=== PATIENT | female | born 1960 | race Caucasian/White ===

== ENCOUNTER 2016-07-08 01:12 | Inpatient (IN) | payer BC ==
[~2016-07-08] VITALS: Ht 167.6 cm; Wt 160.0 kg
[~2016-07-08 01:12] MED LIST: ASPI-664 PO; FER325 PO; HYD25 PO; LORA0.5T PO; NAPR-688 PO; OMEP20CA16 PO
--- NOTE | 2016-07-08 02:13 | ERA ---
ER Documentation Chief Complaint Date/Time DATE: 07/08/16 TIME: 02:13 Chief Complaint Left-sided numbness HPI The patient is a 56-year-old female, presenting to the ER because of left-sided numbness for the last 3 days. She complains of subjective fever, vague left- sided headache, denies sore throat, cough, neck pain, chest pain, dyspnea, abdominal pain, vomiting, dysuria, diarrhea. She does smoke, drinks socially, denies illicit drug Past medical history: Anxiety, chronic low back pain Past surgical history: Appendectomy, , tubal ligation ROS All systems reviewed and are negative except as per history of present illness. Medications Home Meds Active Scripts Naproxen* (Naproxen*) 500 Mg Tablet, 500 MG PO BID Y for PAIN, #30 TAB Prov:ASHELY PADRON MD 02/16/16 Lorazepam* (Lorazepam*) 0.5 Mg Tablet, 0.5 MG PO Q8 Y for ANXIETY, #15 TAB Prov:ASHELY PADRON MD 02/16/16 Reported Medications Ferrous Sulfate* (Ferrous Sulfate*) 325 Mg Tabec, 325 MG PO DAILY, TAB 02/08/15 Omeprazole* (Omeprazole*) 20 Mg Capsule.dr, 20 MG PO DAILY, CAP 02/08/15 Hydrochlorothiazide* (Hydrochlorothiazide*) 25 Mg Tab, 25 MG PO DAILY, TAB 02/08/15 Aspirin* (Aspirin* EC) 81 Mg Tablet.dr, 81 MG PO DAILY, TAB 02/08/15 Allergies Allergies: Coded Allergies: No Known Drug Allergy (Verified Allergy, Mild, 02/08/15) PMhx/Soc History of Surgery: Yes (APPENDECTOMY, , BTL) Anesthesia Reaction: No Hx Neurological Disorder: No Hx Respiratory Disorders: No Hx Cardiac Disorders: No (HTN) Hx Psychiatric Problems: No Hx Miscellaneous Medical Probl: No (THYROID ) Hx Alcohol Use: Yes (occasionally) Hx Substance Use: No Hx Tobacco Use: No Smoking Status: Never smoker Physical Exam Vitals Vital Signs Date Time Temp Pulse Resp B/P Pulse Ox O2 Delivery O2 Flow Rate FiO2 07/08/16 02:01 114 20 155/91 98 Room Air 07/08/16 01:30 100.3 126 18 156/80 94 Physical Exam Const: No acute distress. Head: Atraumatic. Eyes: Normal Conjunctiva. ENT: Normal External Ears, Nose and Mouth. Neck: Full range of motion. No meningismus. Resp: Clear to auscultation bilaterally. Cardio: Regular but tachycardic Abd: Soft, non distended, normal bowel sounds, non tender. Skin: No petechiae or rashes. Back: No midline or flank tenderness. Ext: No cyanosis, or edema. Neur: Awake and alert. Right upper and right lower extremity 5/5, left upper and left lower extremity of 4+ Psych: Normal Mood and Affect. Result Diagram: 07/08/1632907/08/16329 Results 24 hrs Laboratory Tests Test 07/08/16 03:30 Alanine Aminotransferase (ALT/SGPT) 64IU/L Albumin 4.3g/dl Albumin/Globulin Ratio 1.07 Alkaline Phosphatase 157IU/L Anion Gap 20 Aspartate Amino Transf (AST/SGOT) 78IU/L Basophils # 0.010^3/ul Basophils % 0.0% Blood Morphology Comment Blood Urea Nitrogen 15mg/dl Calcium Level 9.2mg/dl Carbon Dioxide Level 23mmol/L Chloride Level 104mmol/L Creatinine 0.60mg/dl Direct Bilirubin 0.00mg/dl Eosinophils # 0.010^3/ul Eosinophils % 0.1% Ethyl Alcohol Level < 10.0mg/dl Globulin 4.00g/dl Glucose Level 106mg/dl Hematocrit 40.1% Hemoglobin 13.4g/dl Indirect Bilirubin 0.3mg/dl Lactic Acid Level 2.0mmol/L Lymphocytes # 0.710^3/ul Lymphocytes % 6.2% Mean Corpuscular Hemoglobin 28.9pg Mean Corpuscular Hemoglobin Concent 33.4g/dl Mean Corpuscular Volume 86.5fl Mean Platelet Volume 12.0fl Monocytes # 0.610^3/ul Monocytes % 5.3% Neutrophils # 10.110^3/ul Neutrophils % 88.4% Nucleated Red Blood Cells # 0.010^3/ul Nucleated Red Blood Cells % 0.0/100WBC Platelet Count 28863^3/UL Potassium Level 4.9mmol/L Red Blood Count 4.6310^6/ul Red Cell Distribution Width 14.5% Sodium Level 142mmol/L Total Bilirubin 0.3mg/dl Total Protein 8.3g/dl Troponin I 0.031ng/ml Urine Bilirubin NEGATIVE Urine Clarity CLEAR Urine Color LT. YELLOW Urine Glucose NEGATIVE% Urine Hemoglobin 3+ Urine Ketones NEGATIVE Urine Leukocyte Esterase NEGATIVE Urine Microscopic RBC 25-50/HPF Urine Microscopic WBC 0-2/HPF Urine Nitrite NEGATIVE Urine Specific [place] <=1.005 Urine Squamous Epithelial Cells FEW Urine Total Protein NEGATIVE Urine Urobilinogen 0.2 E.U./dL Urine pH 6.5 White Blood Count 11.410^3/ul Current Medications Medications (Trade) Dose Ordered Sig/Vinh Route PRN Reason Start Time Stop Time Status Last Admin Dose Admin Acetaminophen (Tylenol Tab) 650 mg ONCE STAT PO 07/08/16 02:43 07/08/16 02:46 DC 07/08/16 03:11 Procedures/MDM EKG: Read by emergency physician Rate/Rhythm: Sinus tachycardia 101 beats per min QRS, ST, T-waves: No ST elevation, no T wave inversion, inferior Q waves, artifacts Impression: Abnormal EKG [place] [address] Radiology Main Line: [phone] DIAGNOSTIC IMAGING REPORT Patient: SOPHIE BROWN : 1960 Age: 56 Sex: F MR #: [id number] DOS: 07/08/16 0243 Ordering MD: FRANCES MENDENHALL MD Location: E/R Room/Bed: PROCEDURE: Chest. CLINICAL INDICATION: Chest pain. TECHNIQUE: Single frontal view of the chest was obtained. COMPARISON: 02/16/2016. FINDINGS: The cardiac silhouette is magnified. The aortic arch is unremarkable. There is no focal consolidation, vascular congestion or pleural effusion. There is no pneumothorax. IMPRESSION: No evidence for active cardiopulmonary disease. .Jericho Tai MD, MD Date Time Electronically viewed and signed by .Jericho Tai MD, on 07/08/2016 03:35 .T/ CC: FRANCES MENDENHALL MD [address] [address] Radiology Main Line: [phone] DIAGNOSTIC IMAGING REPORT Patient: SOPHIE BROWN : 1960 Age: 56 Sex: F MR #: [id number] [facility] #: [id number] DOS: 07/08/16 0243 Ordering MD: FRANCES MENDENHALL MD Location: E/R Room/Bed: PROCEDURE: CT brain without contrast. CLINICAL INDICATION: Weakness. TECHNIQUE: CT scan of the brain was performed on a multi-detector high- resolution CT scanner. Contiguous axial images were obtained from the skull base to the vertex without intravenous contrast. Coronal and sagittal reformatted images were also obtained. Images were reviewed on the PACS workstation. One or more of the following dose reduction techniques were used: - Automated exposure control. - Adjustment of the mA and/or kV according to patient size. - Use of iterative reconstruction technique. Exam CTD/vol = 45.01 mGy. Total exam DLP = 720.23 mGy-cm. COMPARISON: 03/31/2015. FINDINGS: The ventricles and cortical sulci are within normal limits for patient's age. There are no areas of abnormal attenuation within the brain parenchyma. There is no mass effect or midline shift. There is no intracranial hemorrhage or abnormal extra-axial collection. The calvarium is intact. There is no evidence of fracture. Visualized paranasal sinuses and mastoid air cells are clear. IMPRESSION: No acute intracranial abnormality identified. .Jericho Tai MD, MD Date Time Electronically viewed and signed by .Jericho Tai MD, on 07/08/2016 04:23 .T/ CC: FRANCES MENDENHALL MD MEDICAL MAKING DECISION: The patient is a 56-year-old female, presenting with subacute left-sided weakness of unclear etiology. The differential diagnoses considered include but are not limited to TIA, CVA, central causes such as cerebellar infarct, cerebellar hemorrhage, cerebellar tumor, acoustic neuroma, peripheral causes such as benign positional vertigo, labyrinthitis, medication, Meniere's disease. She was treated with Tylenol for her headache with good response Urinalysis pending Departure Diagnosis: Primary Impression: Left-sided weakness Condition: Stable Comments I discussed the findings with the patient. I discussed the patient with the on- call hospitalist Dr. Escobar who was made aware of the lab, the treatment, the patient condition. The patient is admitted to telemetry at 5 AM The patient's blood pressure was elevated (>120/80) but appears stable without evidence of hypertension emergency or urgency. The patient was counseled about the risks of hypertension and urged to pursue outpatient monitoring and therapy within a week after discharge with their primary care physician. FRANCES MENDENHALL MD Jul 08, 2016 02:13
[2016-07-08] MEDS ORDERED: ACETAMINOPHEN 325 MG TAB PO STA (02:43)
--- NOTE | 2016-07-08 03:35 | RADRPT ---
PROCEDURE: Chest. CLINICAL INDICATION: Chest pain. TECHNIQUE: Single frontal view of the chest was obtained. COMPARISON: 02/16/2016. FINDINGS: The cardiac silhouette is magnified. The aortic arch is unremarkable. There is no focal consolidat ion, vascular congestion or pleural effusion. There is no pneumothorax. IMPRESSION: No evidence for active cardiopulmonary disease. .Jericho Tai MD, Date Time Electronically viewed and signed by .Jericho Tai MD, on 07/08/2016 03:35 .T/
--- NOTE | 2016-07-08 04:23 | RADRPT ---
PROCEDURE: CT brain without contrast. CLINICAL INDICATION: Weakness. TECHNIQUE: CT scan of the brain was performed on a multi-detector high-resolution CT scanner. Co ntiguous axial images were obtained from the skull base to the vertex without intravenous contrast. Coronal and sagittal reformatted images were also obtained. Images were reviewed on the PACS works tation. One or more of the following dose reduction techniques were used: - Automated exposure control. - Adjustment of the mA and/or kV according to patient size. - Use of iterative reconstruction technique. Exam CTD/vol = 45.01 mGy. Total exam DLP = 720.23 mGy-cm. COMPARISON: 03/31/2015. FINDINGS: The ventricles and cortical sulci are within normal limits for patient's age. There are no areas of abnormal attenuation within the brain parenchyma. There is no mass effect or midline shift. There is no intracranial hemorrhage or abnormal extra-axial collection. The calvarium is intact. There is no evidence of fracture. Visualized paranasal sinuses and mastoid air cells are clear. IMPRESSION: No acute intracranial abnormality identified. .Jericho Tai MD, MD Date Time Electronically viewed and signed by .Jericho Tia MD, MD on 07/08/2016 04:23 .T/
[2016-07-08 04:30] LABS: ALBUMIN 4.3 g/dl (3.3-4.9); CHLORIDE 104 mmol/L (97-110); EOSINOPHILS % 0.1 % (0.0-7.0); HEMATOCRIT 40.1 % (37.0-47.0); HEMOGLOBIN 13.4 g/dl (12.0-16.0); LYMPHOCYTES # 0.7 10^3/ul (0.8-2.9); LYMPHOCYTES % 6.2 % (15.0-51.0); MEAN CORPUSCULAR HEMOGLOBIN 28.9 pg (29.0-33.0); MEAN CORPUSCULAR HGB CONC 33.4 g/dl (32.0-37.0); MEAN CORPUSCULAR VOLUME 86.5 fl (82.0-101.0); MONOCYTE # 0.6 10^3/ul (0.3-0.9); MONOCYTES % 5.3 % (0.0-11.0); NEUTROPHIL # 10.1 10^3/ul (1.6-7.5); NEUTROPHILS % 88.4 % (39.0-77.0); PLATELET COUNT 215 10^3/UL (140-440); POTASSIUM 4.9 mmol/L (3.5-5.1); RED BLOOD COUNT 4.63 10^6/ul (4.20-5.40); RED CELL DISTRIBUTION WIDTH 14.5 % (11.5-14.5); SODIUM 142 mmol/L (135-144); UNCORRECTED WBC 11.4 10^3/ul (4.8-10.8); WHITE BLOOD COUNT 11.4 10^3/ul (4.8-10.8)
[2016-07-08 04:33] LABS: ALANINE AMINOTRANSFERASE 64 IU/L (13-69); ALBUMIN/GLOBULIN RATIO 1.07; ALKALINE PHOSPHATASE 157 IU/L (42-121); ANION GAP 20 (8-16); ASPARTATE AMINO TRANSFERASE 78 IU/L (15-46); BILIRUBIN,INDIRECT 0.3 mg/dl (0-1.1); BILIRUBIN,TOTAL 0.3 mg/dl (0.2-1.3); BLOOD UREA NITROGEN 15 mg/dl (7-20); CALCIUM 9.2 mg/dl (8.4-10.2); CARBON DIOXIDE 23 mmol/L (21-31); GLUCOSE 106 mg/dl (70-220); TOTAL PROTEIN 8.3 g/dl (6.1-8.1)
[2016-07-08 04:35] LABS: CONDITION 1; LH ANALYZER COMMENTS 1; SUSPECT 1
[2016-07-08 04:37] LABS: ETHANOL < 10.0 mg/dl
[2016-07-08 04:45] LABS: ADD UMIC YES; URINE BILIRUBIN (Dip) NEGATIVE (NEGATIVE); URINE BLOOD (Dip) 3+ (NEGATIVE); URINE COLOR LT. YELLOW (YELLOW); URINE GLUCOSE (Dip) NEGATIVE (NEGATIVE); URINE KETONES (Dip) NEGATIVE (NEGATIVE); URINE LEUKOCYTE ESTERASE (Dip) NEGATIVE (NEGATIVE); URINE NITRITE (Dip) NEGATIVE (NEGATIVE); URINE TOTAL PROTEIN (Dip) NEGATIVE (NEGATIVE); URINE UROBILINOGEN (Dip) 0.2 E.U./dL (0.1-1.0)
[2016-07-08 04:46] LABS: TROPONIN-I 0.031 ng/ml (0.00-0.12)
[2016-07-08 05:01] LABS: SQUAMOUS EPITHELIAL CELL,UR FEW; URINE RBCS 25-50 /HPF (0)
[2016-07-08 05:07] LABS: BARBITURATES Negative (NEGATIVE); BENZODIAZEPINES Negative (NEGATIVE); CANNABINOIDS Negative (NEGATIVE); COCAINE Negative (NEGATIVE); OPIATES Negative (NEGATIVE)
[2016-07-08 08:01] LABS: PROTIME 13.2 Sec (12.2-14.2)
--- NOTE | 2016-07-08 08:28 | HP ---
DATE OF ADMISSION: 07/08/2016 CHIEF COMPLAINT: Left arm and leg numbness. HISTORY OF PRESENT ILLNESS: The patient is a 56-year-old female with a history of hypertension, anx iety, and iron deficiency anemia who presented to the emergency department with a chief complaint of left-sided numbness. She said numbness includes her left arm and left leg and also reported some f acial twitching. Symptoms have been going on for about 3 days. She further reported subjective fev er but denied any nausea, vomiting, chest pain, shortness of breath, abdominal pain, or urinary symp toms. When the patient presented to the ER, blood pressure was 156/80, heart rate 123, respiratory rate 18 , temperature 100.3, oxygen saturation 94% on room air. Brain CT was done, and it showed no acute i ntracranial abnormality. Chest x-ray also shows no evidence of active cardiopulmonary disease. Lab oratory data shows a WBC of 11.4, AST 78, alkaline phosphatase 157. Otherwise, CBC and CMP are with in normal limits. Urinalysis is negative for UTI. Urine toxicology screen is negative. She was gi rodo Tylenol 650 x1 while she was in the ER, and currently she is awaiting admission to telemetry [facility]. REVIEW OF SYSTEMS: A 12-point review was performed and negative except as mentioned in HPI. PAST MEDICAL HISTORY: As per HPI. PAST SURGICAL HISTORY: Appendectomy, , tubal ligation. SOCIAL HISTORY: Denied a history of tobacco, alcohol, or illicit drug use. ALLERGIES: NO KNOWN DRUG ALLERGIES. HOME MEDICATIONS: 1. Ferrous sulfate. 2. Aspirin. 3. Ativan. 4. Naproxen. 5. Hydrochlorothiazide. 6. . PHYSICAL EXAMINATION: VITAL SIGNS: Blood pressure 155/91, heart rate 114, respiratory rate 20, temperature earlier was 10 0.3, oxygen saturation 98% on room air. GENERAL: No acute distress. She is alert and oriented and answering questions appropriately. HEENT: No obvious head deformity. Pupils are reactive to light. Extraocular muscles intact. CARDIOVASCULAR: Tachycardic with regular rhythm. LUNGS: Clear. ABDOMEN: Soft, nontender, nondistended. Active bowel sounds. EXTREMITIES: No edema. NEUROLOGIC: No focal weakness. There is slight decreased sensation on the left upper extremity. N o double vision. No facial droop. No tongue deviation. LABORATORY: Pertinent positives as mentioned in HPI. IMAGING: Chest x-ray and brain CT results show no acute findings. IMPRESSION: 1. Left-sided numbness, rule out stroke. 2. Systemic inflammatory response syndrome with no identifiable source of infection. 3. Hypertension. 4. History of anxiety. 5. History of iron deficiency anemia. PLAN: We will admit to telemetry unit. The patient has not been given aspirin in the ER, so we anais l give a dose now, and we will continue on a daily basis. She needs workup for stroke. She will be placed on statin. We will obtain MRI of the brain, carotid Doppler ultrasound, and a 2D echo. The patient also meets the SIRS criteria and currently no identifiable source of infection with a negat arelis chest x-ray and a urinalysis. If she continues to be febrile and complains of any neck stiffnes s or headache, then we will work up for possible meningitis. In the meantime, we will send the bloo d culture and urine culture, and she will be placed on antibiotics. We will continue her home medic ations with adjustment as needed including her antihypertensives for better blood pressure control. For DVT prophylaxis, Levaquin. For gastrointestinal prophylaxis, she will be continued with her [facility] Prilosec. We will consider neurology consult based on clinical course. Further workup and management per clinical course. Dictated By: ODIN STEWARD/TERESITA Conf#: [id number] DID#: [id number]
[2016-07-08] MEDS ORDERED: hydrALAzine 20 MG INJ IV PRN (12:30)
[2016-07-08] MEDS ORDERED: NACL 0.9% 3 ML SYG IV SCH (12:30)
[2016-07-08] MEDS ORDERED: ONDANSETRON 4 MG INJ IV PRN (12:30)
--- NOTE | 2016-07-08 14:38 | QN ---
Documentation Comment The patient was seen and examined. Ordered carotid duplex, 2D echocardiogram, and brain MRI. The patient was started on IV fluids. Pancultures were ordered to further evaluate the febrile episode. Plan of care was explained to the patient. Case discussed with Dr. Molina. JT SALTER NP Jul 08, 2016 14:38
[2016-07-08] MEDS: SOD CHLORIDE 0.9% 1,000 ML IV SCH ×2 (15:09→21:44)
--- NOTE | 2016-07-08 15:45 | RADRPT ---
PROCEDURE: US Carotids. CLINICAL INDICATION: bruit , TIA TECHNIQUE: Multiple sonographic of the carotid bifurcation region and vertebral arteries were obta ined utilizing phan scale, duplex and color-flow imaging. The images were reviewed on a PACS worksta tion. COMPARISON: No prior studies are available for comparison. FINDINGS: Evaluation of the right carotid bifurcation region reveals no significant calcific atherosclerotic d isease. Evaluation of the left carotid bifurcation region reveals no significant calcific atherosclerotic di sease. There is antegrade flow within the vertebral arteries bilaterally. RIGHT CAROTID MEASUREMENTS: Common Carotid Gbhooj640.3 (cm/sec) Internal Carotid Artery - sgmoxyeg235.5 (cm/sec) Internal Carotid Artery - mid57.2 (cm/sec) Internal Carotid Artery - hywvku27.9 (cm/sec) Internal Carotid/Common Carotid1.26 LEFT CAROTID MEASUREMENTS: Common Carotid Icafif81.6 (cm/sec) Internal Carotid Artery - egekvbof85.6 (cm/sec) Internal Carotid Artery - mid56.7 (cm/sec) Internal Carotid Artery - cdolyb78.4 (cm/sec) Internal Carotid/Common Carotid0.64 RPTAT: AA IMPRESSION: No evidence for hemodynamically significant stenosis in the bilateral internal carotid arteries - va lidated velocity measurements with angiographic measurements, velocity criteria are extrapolated fro m diameter data as defined by the Society of Radiologists in Ultrasound Consensus Conference Radiolo gy 2003; 229;340-346. This study does indirectly reference the measurement of the distal ICA diamet er as the denominator for stenosis measurement. Normal antegrade flow in the vertebral arteries bilaterally. .Mic Watts MD, MD Date Time Electronically viewed and signed by .Mic Watts MD, on 07/08/2016 15:45 .S/
--- NOTE | 2016-07-08 16:26 | RADRPT ---
PROCEDURE: MRI Brain without contrast. CLINICAL INDICATION: Weakness TECHNIQUE: Multiplanar MRI of the brain without contrast was performed on a 3.0 T scanner with the following sequences obtained: T1-weighted, T2-weighted/FLAIR, diffusion weighted (with ADC map), GR E. COMPARISON: CT brain 07/08/2016 FINDINGS: No acute/recent ischemic infarction or intracranial hemorrhage / blood degradation products are iden tified. No extra-axial fluid collection is seen. There is no mass effect. No midline shift is identified. The ventricles and sulci are within normal limits for size and configuration. There are minimal scattered areas of increased T2-weighted FLAIR signal intensity in the periventric ular - deep white matter which are nonspecific but likely reflect chronic small vessel ischemic gates ges. Flow voids are identified in the proximal intracranial arteries and dural sinuses suggesting patency . The mastoid air cells and paranasal sinuses are grossly clear. IMPRESSION: 1. No evidence of acute intracranial pathology. 2. Minimal chronic small vessel ischemic changes. RPTAT: VV .Freddie Welsh MD, MD Date Time Electronically viewed and signed by .Freddie Welsh MD, on 07/08/2016 16:26 .O/
[2016-07-08] MEDS ORDERED: ACETAMINOPHEN 325 MG TAB PO ONE (17:00)
--- NOTE | 2016-07-08 17:16 | RADRPT ---
Echocardiogram Report Patient Name: SOPHIE BROWN Gender: Female Date: 1960 Study Date: 08-Jul-2016 [place] Roofer: Mili Almendarez SHAHEEN Location: [facility] Ref. Physician: JT SALTER Quality: Adequate Procedures: Transthoracic echocardiogram with complete 2D, M-Mode, and doppler examination. Indications: Evaluate Left Ventricular function. 2D/M Mode Doppler Measurement Value Normal Ranges Measurement Value Normal Ranges LVIDd 2D 5.0 3.5 - 5.6 cm AV Peak Tylor 1.8 m/sec LVIDs 2D 2.5 2.1 - 4.1 cm AV Peak PG 13.0 mmHg FS 2D 49.8 % LVOT Peak Tylor 1.3 m/sec LVPWd 2D 0.9 0.6 - 1.1 cm LVOT Peak PG 7.0 mmHg IVSd 2D 0.9 0.6 - 1.1 cm MV E Peak Tylor 0.6 m/sec IVS/LVPW 2D 1.0 MV A Peak Tylor 0.7 m/sec AoR Diam 2D 3.3 2.0 - 3.7 cm MV E/A 0.8 LA/Ao 2D 1 0 - 1 MV Decel Time 169 msec EDV 2D 127.0 cm3 MV E/A 0.8 ESV 2D 16.0 cm3 TR Peak Tylor 1.9 m/sec LA Dimen 2D 2.8 2.3 - 4.0 cm TR Peak PG 15.0 mmHg RVSP 18.0 mmHg Findings Left Ventricle: Normal left ventricular systolic function. Normal left ventricular cavity size. Normal left ventricular wall thickness. Ejection fraction is visually estimated at 55 %. Tissue Doppler/Mitral Doppler indices are consistent with impaired relaxation (Stage I diastolic dysfunction). Right Ventricle: Normal right ventricular size. Normal right ventricular systolic function. Left Atrium: The left atrium is normal in size. Right Atrium: The right atrium is normal in size. Mitral Valve: Normal appearance and function of the mitral valve with trace physiologic regurgitation. Aortic Valve: Normal appearance of the aortic valve. No significant aortic stenosis or insufficiency. Tricuspid Valve: Normal appearance of the tricuspid valve. Estimated peak PA systolic pressure 18 mmHg. There is trace tricuspid regurgitation. Pericardium: Normal pericardium with no significant pericardial effusion. Aorta: Normal aortic root. IVC: Normal size and normal respiratory collapse consistent with normal right atrial pressure. Conclusions 1.Normal left ventricular systolic function. Normal left ventricular cavity size. Normal left ventricular wall thickness. Ejection fraction is visually estimated at 55 %. Tissue Doppler/Mitral Doppler indices are consistent with impaired relaxation (Stage I diastolic dysfunction). 2.Normal appearance and function of the mitral valve with trace physiologic regurgitation. 3.Normal appearance of the tricuspid valve. Estimated peak PA systolic pressure 18 mmHg. There is trace tricuspid regurgitation. Electronically Signed By: Shar Pritchard 08-Jul-2016 17:16:00 -0800 Patient Name: SOPHIE BROWN Study Date: 08-Jul-2016 [id number]
[2016-07-08 19:45] VITALS: TEMP 99.3
[2016-07-08 20:00] VITALS: BP 115/78; PULSE 78; RESP 16
[2016-07-08 20:50] VITALS: PULSE 88
[2016-07-08 21:00] VITALS: Ht 167.6 cm; Wt 160.0 kg
[2016-07-09] VITALS (11 sets, daily range): BP systolic 102–123; BP diastolic 55–78; PULSE 71–97; RESP 16–18
[2016-07-09] MEDS ORDERED: LEVOFLOXACIN 500MG/D5W (PMX) 100 ML IVPB SCH (01:30)
[2016-07-09] MEDS ORDERED: ACETAMINOPHEN 325 MG TAB PO PRN (01:30)
[2016-07-09 07:35] LABS: CHOL/HDL RATIO 2.1 RATIO; MAGNESIUM 1.9 mg/dl (1.7-2.5); PHOSPHORUS 3.1 mg/dl (2.5-4.9)
[2016-07-09 07:37] LABS: ALBUMIN 3.1 g/dl (3.3-4.9)
[2016-07-09 07:38] LABS: POTASSIUM 3.1 mmol/L (3.5-5.1)
[2016-07-09 07:40] LABS: ALBUMIN/GLOBULIN RATIO 0.96; BILIRUBIN,INDIRECT 0.2 mg/dl (0-1.1); BILIRUBIN,TOTAL 0.2 mg/dl (0.2-1.3); CREATININE 0.54 mg/dl (0.44-1.00); TOTAL PROTEIN 6.3 g/dl (6.1-8.1)
[2016-07-09 07:41] LABS: CALCIUM 8.4 mg/dl (8.4-10.2)
[2016-07-09 08:06] LABS: THYROID STIMULATING HORMONE 0.706 MIU/L (0.465-4.680)
[2016-07-09] MEDS ORDERED: FERROUS SULFATE (EC) 325 MG TAB PO SCH (09:00)
[2016-07-09] MEDS ORDERED: HYDROCHLOROTHIAZIDE 25 MG TAB PO SCH (09:00)
[2016-07-09] MEDS ORDERED: ASPIRIN (EC) 81 MG TAB PO SCH (09:00)
[2016-07-09 09:01] LABS: HEMATOCRIT 34.3 % (37.0-47.0); HEMOGLOBIN 11.4 g/dl (12.0-16.0); MEAN CORPUSCULAR VOLUME 86.6 fl (82.0-101.0); RED BLOOD COUNT 3.96 10^6/ul (4.20-5.40)
[2016-07-09 09:02] LABS: BASOPHILS % 0.2 % (0.0-2.0); LYMPHOCYTES # 1.5 10^3/ul (0.8-2.9); MEAN CORPUSCULAR HEMOGLOBIN 28.8 pg (29.0-33.0); MEAN CORPUSCULAR HGB CONC 33.2 g/dl (32.0-37.0); MEAN PLATELET VOLUME 12.6 fl (7.4-10.4); MONOCYTE # 0.6 10^3/ul (0.3-0.9); MONOCYTES % 5.5 % (0.0-11.0); NEUTROPHIL # 7.9 10^3/ul (1.6-7.5); NEUTROPHILS % 78.9 % (39.0-77.0); PLATELET COUNT 195 10^3/UL (140-440); RED CELL DISTRIBUTION WIDTH 14.2 % (11.5-14.5)
[2016-07-09] MEDS ORDERED: HYD25 PO (13:52)
[2016-07-09] MEDS ORDERED: FER325 PO (13:52)
[2016-07-09] MEDS ORDERED: ASPI-664 PO (13:52)
[2016-07-09] MEDS ORDERED: OMEP20CA16 PO (13:52)
--- NOTE | 2016-07-09 13:55 | PDOCDIS ---
Discharge Instructions DIAGNOSIS Discharge Diagnosis: 1. Suspect migraine hemiplegia 2. UTI 3. hypertension 4. Anxiety 5. anemia CONDITION Patient Condition: Stable HOME CARE INSTRUCTIONS: Diet Instructions: Low Fat /CholesterolSpecial Diet: reduced calorie FOLLOW UP/APPOINTMENTS Appointments 1. Follow up with your primary care provider in one week. OTHER ORDERS: Other Orders: 1. Call 911 if you have worsening extremity weakness, slurred speech, or facial droop SEDRICK ADEN Jul 09, 2016 13:55
[2016-07-09] MEDS ORDERED: POTASSIUM CHLORIDE 250 ML IVPB ONE (14:00)
[2016-07-09] MEDS: SOD CHLORIDE 0.9% 1,000 ML IV SCH (17:40)
--- NOTE | 2016-07-09 18:19 | CONS ---
DATE OF ADMISSION: 07/08/2016 DATE OF CONSULTATION: 07/09/2016 REASON FOR CONSULTATION: Abnormal electrocardiogram with uncontrolled hypertension. HISTORY OF PRESENT ILLNESS: The patient is a 56-year-old female who initially came with left-sided weakness, it was a sudden weakness. She complains of shortness of breath with dizziness. Denies an y chest pain, syncope, palpitations. Denies orthopnea, PND, denies fever, chills or rigors. Denies nausea or vomiting. PAST MEDICAL HISTORY: Significant for hypertension, anxiety, iron deficiency anemia. SOCIAL HISTORY: No smoking, alcohol, or recreational drugs. ALLERGIES: NONE. CURRENT MEDICATIONS: 1. Ferrous sulfate. 2. Aspirin. 3. Hydrochlorothiazide. REVIEW OF SYSTEMS: Unremarkable except that mentioned in the HPI. PHYSICAL EXAMINATION: VITAL SIGNS: Temperature is 97.9, heart rate of 79, blood pressure 123/66 mmHg, breathing at 18 and saturating 95%. GENERAL: Patient is awake, alert, oriented, in no apparent distress. NECK: No JVD or carotid bruit. CARDIOVASCULAR: Regular rate and rhythm, no murmur, rub or gallop. LUNGS: Clear to auscultation. ABDOMEN: Soft. Bowel sounds are present. There is no organomegaly. EXTREMITIES: No pedal edema. Pedal pulses are felt bilaterally. EKG shows sinus tachycardia with a ventricular rate of 101 beats per minute, normal WI, normal QRS a nd normal QT intervals with nonspecific ST-T wave changes. LABORATORY DATA: Troponin x1 is negative. Sodium 142, potassium 3.1, chloride 108, CO2 of 23, BUN 8, creatinine 0.54. WBC 10, hemoglobin 11.4, hematocrit 34.2 with a platelet of 195. ASSESSMENT AND PLAN: A 56-year-old female with abnormal electrocardiogram, dizziness and hypertensi on with sudden weakness. Review of 12-lead EKG shows sinus tachycardia with nonspecific ST-T wave changes. Chest x-ray shows no congestion or infiltrates. The patient is currently hemodynamically stable. RECOMMENDATIONS: 1. Continue hydrochlorothiazide. 2. Continue aspirin. 3. Recommend a stress test as outpatient. Dictated By: SONU ROSEN MD SR/NTS Conf#: [id number] DID#: [id number]
== END 2016-07-09 19:28 | disposition home or self-care (01) | DRG 92 ==
LOC: E/R 01:12 → MS4 05:02
PROVIDERS: ADMIT Internal Medicine; ATTEND Internal Medicine
DX: R20.0 Anesthesia of skin (principal); R65.10 Systemic inflammatory response syndrome (SIRS) of non-infectious origin without acute organ dysfunction; I10 Essential (primary) hypertension; F41.9 Anxiety disorder, unspecified; D64.9 Anemia, unspecified; R06.02 Shortness of breath; R42 Dizziness and giddiness
CPT/HCPCS: 36415; 70450; 70551; 71010; 80053; 80061; 80306; 80307; 81001; 81003; 83036; 83605; 83735; 84100; 84439; 84443; 84484; 85025; 85610; 85730; 87040; 87086; 92610; 93005; 93306; 93880; J1956; J3480; J7030

== ENCOUNTER 2016-11-20 12:19 | Emergency (ER) | payer BC ==
[~2016-11-20] VITALS: Ht 165.1 cm; Wt 73.5 kg
[~2016-11-20 12:19] MED LIST changes: -LORA0.5T PO; -NAPR-688 PO
[2016-11-20 12:21] VITALS: Ht 165.1 cm; Wt 73.5 kg
[2016-11-20] MEDS ORDERED: ONDANSETRON (ODT) 4 MG TAB ODT STA (13:07)
--- NOTE | 2016-11-20 13:15 | ERA ---
ER Documentation Chief Complaint Date/Time DATE: 11/20/16 TIME: 13:14 Chief Complaint Complains of vomiting x 3 days HPI This is a 56-year-old female presenting with a chief complaint of nausea, vomiting, and diarrhea. Patient is also complaining of mild dizziness, left arm tingling, and headache. Patient has a history of hypertension. Denies thunderclap/worse headache of life, fever, chest pain, or shortness of breath. Patient has had similar symptoms in the past, but patient is unaware any given diagnoses. Patient has not taken any medications to relieve the symptoms. ROS All systems reviewed and are negative except as per history of present illness. Medications Home Meds Active Scripts Ondansetron Hcl* (Zofran*) 4 Mg Tablet, 4 MG PO Q6H for NAUSEA AND/OR VOMITING, #30 TAB Prov:FRANCES PEÑA PA-C 11/20/16 Ferrous Sulfate* (Ferrous Sulfate*) 325 Mg Tabec, 325 MG PO DAILY for 30 Days, TAB Prov:REGJOHNRSEDRICK 07/09/16 Omeprazole* (Omeprazole*) 20 Mg Capsule.dr, 20 MG PO DAILY for 30 Days, CAP Prov:REGIDOR,SEDRICK 07/09/16 Hydrochlorothiazide* (Hydrochlorothiazide*) 25 Mg Tab, 25 MG PO DAILY for 30 Days, TAB Prov:REGIDORSEDRICK 07/09/16 Aspirin* (Aspirin* EC) 81 Mg Tablet.dr, 81 MG PO DAILY for 30 Days, TAB Prov:REGIDOR,SEDRICK 07/09/16 Allergies Allergies: Coded Allergies: No Known Drug Allergy (Verified Allergy, Mild, 07/08/16) PMhx/Soc History of Surgery: Yes (APPENDECTOMY) Anesthesia Reaction: No Hx Neurological Disorder: No Hx Respiratory Disorders: No Hx Cardiac Disorders: Yes (HTN) Hx Psychiatric Problems: No Hx Miscellaneous Medical Probl: No Hx Alcohol Use: No Hx Substance Use: No Hx Tobacco Use: No Physical Exam Vitals Physical Exam Const: Healthy-appearing. Well-nourished. Well-developed. No acute distress. Head: Normocephalic, Atraumatic. No sinus tenderness. Eyes: Non-injected; No scleral erythema, discharge or foreign body. EOMI and CINDY bilaterally. Ears: Normal External Ears, EACs clear, TM normal bilaterally without erythema. Nose: Normal nose without discharge, septal deviation, or sinus tenderness. Oral: No oral edema visualized. Mucous membranes moist and pink. Neck: No cervical lymphadenopathy, masses or goiter palpated. Full range of motion. Supple. Trachea midline. ~ No meningismus. Pulm: Good air movement in upper and lower respiratory tracts. No dyspnea, stridor, tripoding or drooling. Clear to auscultation bilaterally. Percussion unremarkable in all lung grullon bilaterally. Cardio: Regular rate and rhythm; No murmurs, gallops or rubs auscultated. No JVD grossly observed. Radial and posterior tibial pulses 2+ bilaterally. No cyanosis. Capillary refill less than 2 seconds. Abd: Mild tenderness with deep palpation in the epigastric and mid abdominal regions. Soft. No distention. No guarding, masses. Normal bowel sounds. No McBurney's point tenderness. Negative Keita's sign. Unable to palpate the spleen or aorta. MS: Normal motor strength, normal tone with gross examination. Skin: No petechiae or rashes. No ulcer, induration, jaundice. Good turgor. Back: No midline, flank or CVA tenderness. Ext: No cyanosis, or edema. Normal movement of all extremities grossly observed. Neur: Awake, alert and oriented x3. Neurovascularly intact bilaterally. Psych: Active and alert. Normal Mood and Affect. Oriented x3. Results 24 hrs Laboratory Tests Test 11/20/16 13:15 11/20/16 13:21 Urine Color LT. YELLOW Urine Clarity CLEAR Urine pH 7.0 Urine Specific Adair <=1.005 Urine Ketones NEGATIVE Urine Nitrite NEGATIVE Urine Bilirubin NEGATIVE Urine Urobilinogen 0.2 E.U./dL Urine Leukocyte Esterase NEGATIVE Urine Microscopic RBC 2-5/HPF Urine Microscopic WBC NONE SEEN/HPF Urine Epithelial Cells RARE Urine Hemoglobin 2+ Urine Glucose NEGATIVE% Urine Total Protein NEGATIVE White Blood Count 16.410^3/ul Red Blood Count 4.8410^6/ul Hemoglobin 14.1g/dl Hematocrit 43.1% Mean Corpuscular Volume 89.0fl Mean Corpuscular Hemoglobin 29.1pg Mean Corpuscular Hemoglobin Concent 32.7g/dl Red Cell Distribution Width 14.6% Platelet Count 12746^3/UL Mean Platelet Volume 11.5fl Neutrophils % 84.4% Lymphocytes % 9.1% Monocytes % 5.6% Eosinophils % 0.1% Basophils % 0.2% Nucleated Red Blood Cells % 0.0/100WBC Neutrophils # 13.810^3/ul Lymphocytes # 1.510^3/ul Monocytes # 0.910^3/ul Eosinophils # 0.010^3/ul Basophils # 0.010^3/ul Nucleated Red Blood Cells # 0.010^3/ul Sodium Level 137mmol/L Potassium Level 3.8mmol/L Chloride Level 101mmol/L Carbon Dioxide Level 28mmol/L Anion Gap 12 Blood Urea Nitrogen 12mg/dl Creatinine 0.62mg/dl Glucose Level 98mg/dl Calcium Level 9.4mg/dl Total Bilirubin 0.4mg/dl Direct Bilirubin 0.00mg/dl Indirect Bilirubin 0.4mg/dl Aspartate Amino Transf (AST/SGOT) 49IU/L Alanine Aminotransferase (ALT/SGPT) 68IU/L Alkaline Phosphatase 124IU/L Total Protein 8.2g/dl Albumin 4.9g/dl Globulin 3.30g/dl Albumin/Globulin Ratio 1.48 Lipase 138U/L Current Medications Medications (Trade) Dose Ordered Sig/Vinh Route PRN Reason Start Time Stop Time Status Last Admin Dose Admin Acetaminophen (Tylenol Tab) 650 mg ONCE ONCE PO 11/20/16 13:30 11/20/16 13:31 DC 11/20/16 13:18 Ondansetron HCl (Zofran Odt) 8 mg ONCE STAT ODT 11/20/16 13:07 11/20/16 13:09 DC 11/20/16 13:18 Famotidine (Pepcid) 20 mg ONCE ONCE PO 11/20/16 14:30 11/20/16 14:30 DC Procedures/MDM Patient was evaluated and worked up for epigastric abdominal discomfort and vomiting as described in the history and physical examination. Patient was given Tylenol and Zofran in the ED. the workup included a CBC, CMP, lipase,. Labs revealed 16.4 leukocytosis with left shift. Mildly elevated AST and alk phos. ECG was obtained and read by me as normal rhythm, normal rate, no ST elevations or depressions, no T-wave abnormalities, normal axis. My attending with the ECG is unremarkable with normal sinus rhythm. I presented this case to my attending who is agreed with the assessment and plan. At this time I do not suspect acute pancreatitis, cholangitis, myocardial/Intestinal ischemia, pneumonia, hernia, or esophageal rupture. Patient was given 650 mg of acetaminophen p.o., 4 mg ODT of Zofran and Pepcid with symptomatic improvement. On repeat exam, the abdomen has improved. The patient is well appearing, and tolerates PO. I have spoke with the patient regarding their condition and future management. They have verbally responded that they understand their status and treatment plan. The patients vitals are stable, and their current condition is appropriate for discharge. The patient will be given discharge instructions with return precautions. Departure Diagnosis: Primary Impression: Viral gastroenteritis Additional Impressions: Nausea and vomiting Qualified Code: R11.2 - Non-intractable vomiting with nausea, unspecified vomiting type Gastritis Qualified Code: K29.70 - Gastritis without bleeding, unspecified chronicity, unspecified gastritis type Condition: Stable Additional Instructions: Follow up with your PCP within the next 1-3 days for a more thorough evaluation and a possible referral to a specialist. Return the the emergency department immediately if symptoms worsen or change. If you have any questions regarding medications, ask your pharmacist or us before you leave. If any adverse reactions occur while taking your medications, discontinue the treatment and return to the emergency department immediately. Take your medications as directed, and complete the entire course of treatment. FRANCES PEÑA PA-C Nov 20, 2016 13:15
[2016-11-20 13:25] LABS: ADD UMIC YES; UR BILIRUBIN (Dip) NEGATIVE (NEGATIVE); UR BLOOD (Dip) 2+ (NEGATIVE); UR CLARITY CLEAR (CLEAR); UR COLOR LT. YELLOW (YELLOW); UR GLUCOSE (Dip) NEGATIVE (NEGATIVE); UR KETONES (Dip) NEGATIVE (NEGATIVE); UR LEUKOCYTE ESTERASE (Dip) NEGATIVE (NEGATIVE); UR NITRITE (Dip) NEGATIVE (NEGATIVE); UR TOTAL PROTEIN (Dip) NEGATIVE (NEGATIVE); UR UROBILINOGEN (Dip) 0.2 E.U./dL (0.1-1.0)
[2016-11-20] MEDS ORDERED: ACETAMINOPHEN 325 MG TAB PO ONE (13:30)
[2016-11-20 13:31] LABS: ADD SCAN DIFF NO
[2016-11-20 13:33] LABS: BASOPHILS % 0.2 % (0.0-2.0); EOSINOPHILS % 0.1 % (0.0-7.0); HEMATOCRIT 43.1 % (37.0-47.0); HEMOGLOBIN 14.1 g/dl (12.0-16.0); LYMPHOCYTES # 1.5 10^3/ul (0.8-2.9); LYMPHOCYTES % 9.1 % (15.0-51.0); MEAN CORPUSCULAR HEMOGLOBIN 29.1 pg (29.0-33.0); MEAN CORPUSCULAR HGB CONC 32.7 g/dl (32.0-37.0); MEAN PLATELET VOLUME 11.5 fl (7.4-10.4); MONOCYTE # 0.9 10^3/ul (0.3-0.9); MONOCYTES % 5.6 % (0.0-11.0); NEUTROPHIL # 13.8 10^3/ul (1.6-7.5); NEUTROPHILS % 84.4 % (39.0-77.0); PLATELET COUNT 267 10^3/UL (140-415); RED BLOOD COUNT 4.84 10^6/ul (4.20-5.40); RED CELL DISTRIBUTION WIDTH 14.6 % (11.5-14.5); WHITE BLOOD COUNT 16.4 10^3/ul (4.8-10.8)
[2016-11-20 13:51] LABS: ALBUMIN/GLOBULIN RATIO 1.48; POTASSIUM 3.8 mmol/L (3.5-5.1)
[2016-11-20 13:52] LABS: ALBUMIN 4.9 g/dl (3.3-4.9); BILIRUBIN,INDIRECT 0.4 mg/dl (0-1.1); BILIRUBIN,TOTAL 0.4 mg/dl (0.2-1.3); CALCIUM 9.4 mg/dl (8.4-10.2); CREATININE 0.62 mg/dl (0.44-1.00); TOTAL PROTEIN 8.2 g/dl (6.1-8.1)
[2016-11-20] MEDS ORDERED: FAMOTIDINE 20 MG TAB PO ONE (14:30)
--- NOTE | 2016-11-20 15:06 | QN ---
Documentation Comment I have seen and evaluated the patient along with the PA and/or PLANNER INTERN provider. I agree with the evaluation and plan of care. Please see their documentation for full ER course and evaluation. In short: Patient presents with nausea vomiting and diarrhea, mild abdominal cramping and mild headache. On exam: General: Well developed, well nourished, no acute distress Head: Normocephalic, atraumatic Eyes: Pupils equally reactive, EOM intact ENT: Moist mucous membranes Neck: Supple, no lymphadenopathy Respiratory: Lungs clear bilaterally, no distress Cardiovascular: RRR, no murmurs, rubs, or gallops Abdominal: Soft, non-tender, non-distended, no peritoneal signs, negative Keita sign, no tenderness to McBurney's point : Deferred MSK: No edema, no unilateral swelling, 5/5 strength Neurologic: Alert and oriented, moving all extremities, normal speech, no focal weakness, no cerebellar signs Skin: No rash Psych: Normal mood Assessment and plan: Patient symptoms are most consistent with likely viral process such as gastroenteritis given her vomiting and diarrhea. Her abdominal exam is benign without focal tenderness. The patient does have leukocytosis with nonspecific transaminitis but she has a benign exam. I would expect these findings in a viral process. I believe at this time the risks outweigh the benefits for CT imaging. I do not believe this is consistent with acute cholecystitis or acute appendicitis no evidence of diverticulitis. The patient will benefit from symptom control. She has since been tolerating oral intake. Outpatient management appropriate. ELBERT JACOBS MD Nov 20, 2016 15:06
[2016-11-20] MEDS ORDERED: ONDA4TAB8 PO (15:34)
== END 2016-11-20 15:45 | disposition home or self-care (01) ==
LOC: FTE 12:19
DX: A08.4 Viral intestinal infection, unspecified (principal); I10 Essential (primary) hypertension; K29.70 Gastritis, unspecified, without bleeding; Z79.82 Long term (current) use of aspirin
CPT/HCPCS: 80053; 81001; 83690; 85025; 93005; Z7610

== ENCOUNTER 2017-09-13 11:13 | Emergency (ER) | END 2017-09-13 20:34 | disposition home or self-care (01) ==

== ENCOUNTER 2018-03-15 05:44 | Inpatient (IN) | END 2018-03-16 17:00 | disposition home or self-care (01) | DRG 313 ==

== ENCOUNTER 2018-10-03 12:29 | Emergency (ER) | payer BC ==
[~2018-10-03] VITALS: Wt 80.9 kg
[~2018-10-03 12:29] MED LIST changes: -ASPI-664 PO; +ASPI-817 PO; -FER325 PO; -HYD25 PO; +HYDR25TA6 PO; +IBUP-1542 PO; +LISI10TA2 PO; +PANT40TA3 PO
[2018-10-03] MEDS ORDERED: RANI150T5 PO (14:48)
[2018-10-03] MEDS ORDERED: NICARDipine HCL 30 MG CAPSULE PO ONE (15:00)
[2018-10-03] MEDS ORDERED: AMLO-218 PO (16:13)
[2018-10-03] MEDS ORDERED: IBUP800T48 PO (16:14)
--- NOTE | 2018-10-03 16:16 | ERD ---
ER Documentation Chief Complaint Chief Complaint HTN x4d; hx of HTN. dizzy. HPI This is a 58-year-old female who complains of 4 days of high blood pressure. She is been checking her pressure at home and she has had a diastolic over 100. She says she feels dizzy and blurry vision off and on throughout the day and she has had this before when her blood pressure is elevated. No chest pain or shortness of breath no focal neurological complaints of numbness or weakness. No headache. She takes 25 mg of hydrochlorothiazide a day ROS All systems reviewed and are negative except as per history of present illness. Medications Home Meds Active Scripts Ibuprofen* (Motrin*) 800 Mg Tab, 800 MG PO Q6H PRN for PAIN AND OR ELEVATED TEMP, #30 TAB Prov:CHERYL URIARTE DO 10/03/18 Amlodipine Besylate* (Norvasc*) 10 Mg Tablet, 10 MG PO QHS, #30 TAB Prov:CHERYL URIARTE DO 10/03/18 Reported Medications Ranitidine Hcl* (Ranitidine Hcl*) 150 Mg Tablet, 150 MG PO Q12, #60 TAB 10/03/18 Lisinopril* (Lisinopril*) Unknown Strength Tablet, 1 TAB PO DAILY, #30 TAB 07/11/18 Hydrochlorothiazide* (Hydrochlorothiazide*) 25 Mg Tab, 25 MG PO DAILY, #30 TAB 07/11/18 Aspirin* (Aspirin* EC) 81 Mg Tablet., 81 MG PO DAILY, TAB 07/11/18 Discontinued Reported Medications Omeprazole* (Omeprazole*) 20 Mg Capsule., 20 MG PO BID, #60 CAP 07/11/18 Discontinued Scripts Ibuprofen* (Motrin*) 600 Mg Tab, 600 MG PO Q6H PRN for PAIN AND OR ELEVATED TEMP, #30 TAB Prov:FRANCES MENDENHALL MD 07/11/18 Pantoprazole* (Protonix*) 40 Mg Tablet., 40 MG PO DAILY, #20 TAB Prov:FRANCES MENDENHALL MD 07/11/18 Allergies Allergies: Coded Allergies: No Known Drug Allergy (Verified Allergy, Mild, 10/03/18) PMhx/Soc History of Surgery: Yes (APPENDECTOMY AND HYSTERECTOMY ) Anesthesia Reaction: No Hx Neurological Disorder: No Hx Respiratory Disorders: No Hx Cardiac Disorders: Yes (HTN ) Hx Psychiatric Problems: No Hx Miscellaneous Medical Probl: Yes (DEPRESSION ) Hx Alcohol Use: No Hx Substance Use: No Hx Tobacco Use: No Smoking Status: Never smoker FmHx Family History: No coronary disease Physical Exam Vitals Vital Signs Date Temp Pulse Resp B/P (MAP) Pulse Ox O2 O2 Flow FiO2 Time Delivery Rate 10/03/18 55 12 159/94 98 Room Air 14:40 (115) 10/03/18 97.2 72 20 172/100 98 12:45 (124) Physical Exam Const: Well-developed, well-nourished Head: Atraumatic, normocephalic Eyes: Normal Conjunctiva, PERRLA, EOMI, normal sclera, no nystagmus ENT: Normal External Ears, Nose and Mouth, moist mucus membranes. Neck: Full range of motion. No meningismus, no lymphadenopathy. Resp: Clear to auscultation bilaterally, no wheezing, rhonchi, rales Cardio: Regular rate and rhythm, no murmurs, S1 S2 present Abd: Soft, non tender x 4, non distended. Normal bowel sounds, no guarding or rebound, no pulsitile abdominal masses or bruits Skin: No petechiae or rashes, no ecchymosis , no maculopapular rash Back: No midline or flank tenderness, tenderness to the left trapezius and left paraspinal musculature cervical region Ext: No cyanosis, or edema, FROM x 4, normal inspection, neurovascularly intact x 4 Neur: Awake and alert, STR 5/5 x 4, sensation intact x 4, no focal findings, cerebellum intact Psych: Normal Mood and Affect Results 24 hrs Current Medications Medications Dose Sig/Vinh Start Time Status Last (Trade) Ordered Route PRN Stop Time Admin Dose Reason Admin Nicardipine 30 mg ONCE ONCE 10/03/18 DC 10/03/18 HCl PO 15:00 10/03/18 15:00 (Cardene) 15:01 Procedures/MDM Patient has some musculoskeletal pain to her trapezius and neck. She was given Cardene 30 mg p.o. her blood pressure is now 155/85. Will stop taking hydrochlorothiazide and start Norvasc 10 mg nightly Departure Diagnosis: Primary Impression: Uncontrolled hypertension Condition: Stable Patient Instructions: High Blood Pressure (Hypertension) Referrals: DOCTOR,NOT ON STAFF (PCP) CHERYL URIARTE DO October 03, 2018 16:16
[2018-10-03 16:17] VITALS: BP 144/96; PULSE 68; RESP 14
== END 2018-10-03 16:17 | disposition home or self-care (01) ==
LOC: E/R 12:29
DX: I10 Essential (primary) hypertension (principal); Z79.82 Long term (current) use of aspirin
CPT/HCPCS: 99283; Z7610

== ENCOUNTER 2018-10-24 06:25 | Day surgery (SDC) | payer BC ==
[~2018-10-24] VITALS: Ht 167.6 cm; Wt 80.4 kg
[~2018-10-24 06:25] MED LIST changes: +AMLO-218 PO; -IBUP-1542 PO; +IBUP800T48 PO; -OMEP20CA16 PO; -PANT40TA3 PO; +RANI150T5 PO
[2018-10-24 07:26] VITALS: Ht 167.6 cm; Wt 80.4 kg
[2018-10-24] MEDS ORDERED: omeprazole PO (07:38)
[2018-10-24 08:10] VITALS: BP 145/81; PULSE 58
[2018-10-24] MEDS ORDERED: MIDAZOLAM 1 MG/ML 2 ML INJ ONE ×2 (09:22)
[2018-10-24] MEDS ORDERED: FENTAnyl 50 MCG/ML VIAL ONE (09:22)
[2018-10-24 09:33] VITALS: BP 122/77; PULSE 53; RESP 14
== END 2018-10-24 11:02 | disposition home or self-care (01) ==
LOC: GIL 06:25
PROVIDERS: ATTEND Internal Medicine Gastroenterology
DX: Z12.11 Encounter for screening for malignant neoplasm of colon (principal); K64.8 Other hemorrhoids; K21.9 Gastro-esophageal reflux disease without esophagitis; I10 Essential (primary) hypertension
CPT/HCPCS: 43239; 45378; 88305; 88312; J2250; J3010; Z7610

== ENCOUNTER 2018-11-24 08:43 | Emergency (ER) | payer BC ==
[~2018-11-24] VITALS: Ht 165.1 cm; Wt 80.9 kg
[~2018-11-24 08:43] MED LIST changes: -AMLO-218 PO; -IBUP800T48 PO; -LISI10TA2 PO; -RANI150T5 PO; +omeprazole PO
[2018-11-24 08:47] VITALS: Ht 165.1 cm; Wt 80.9 kg
[2018-11-24] MEDS ORDERED: SILVER NITRATE SWAB TOP ONE (10:00)
--- NOTE | 2018-11-24 10:18 | ERD ---
ER Documentation Chief Complaint Chief Complaint RT 4TH FINGER LAC HPI 58 year old female presents to the ED with a cut on her finger 5 weeks ago. The cut is located on her right hand on the 4th digit on the dorsal aspect medially underneath the fingernail. The cut is a small 1 cm opening. She states that she does not recall how she cut her finger. She reports that her cut will bleed continuously for an extended period of time, randomly. It started bleeding again this morning and will not stop. This is why she came to the ED today. She does report taking a baby ASA tablet daily. She reports past med hx of HTN. She denies any other cuts or previous hx of similar incidence. She denies pain anyw here. ROS All systems reviewed and are negative except as per history of present illness. Medications Home Meds Reported Medications [omeprazole] No Conflict Check, PO DAILY 10/24/18 Hydrochlorothiazide* (Hydrochlorothiazide*) 25 Mg Tab, 25 MG PO DAILY, #30 TAB 07/11/18 Aspirin* (Aspirin* EC) 81 Mg Tablet.dr, 81 MG PO DAILY, TAB 07/11/18 Allergies Allergies: Coded Allergies: No Known Allergy (Unverified , 11/24/18) PMhx/Soc History of Surgery: Yes (appendectomy) Anesthesia Reaction: No Hx Neurological Disorder: No Hx Respiratory Disorders: No Hx Cardiac Disorders: Yes (htn) Hx Psychiatric Problems: No Hx Miscellaneous Medical Probl: No Hx Alcohol Use: No Hx Substance Use: No Hx Tobacco Use: No Smoking Status: Never smoker FmHx Family History: No diabetes Physical Exam Vitals Vital Signs Date Temp Pulse Resp B/P (MAP) Pulse Ox O2 O2 Flow FiO2 Time Delivery Rate 11/24/18 98.4 66 18 142/75 98 Room Air 10:42 (97) 11/24/18 98.1 72 18 156/74 99 08:47 (101) Physical Exam Const: No acute distress Head: Atraumatic Eyes: Normal Conjunctiva ENT: Normal External Ears, Nose and Mouth. Neck: Full range of motion. No meningismus. Resp: Clear to auscultation bilaterally Cardio: Regular rate and rhythm, no murmurs Abd: Soft, non tender, non distended. Normal bowel sounds Skin: No petechiae or rashes Back: No midline or flank tenderness Ext: right hand: o4th digit on the dorsal aspect medially underneath the fingernail - 1 cm opening that is bleeding red blood continuously Neur: Awake and alert Psych: Normal Mood and Affect Results 24 hrs Current Medications Medications Dose Sig/Vinh Start Time Status Last (Trade) Ordered Route PRN Stop Time Admin Dose Reason Admin Silver 1 stick ONCE ONCE 11/24/18 DC Nitrate TOP 10:00 (Silver 11/24/18 10:01 Nitrate Swabs) Procedures/MDM ED COURSE: The patient was stable throughout ED course. I kept the patient informed of laboratory and diagnostic imaging results throughout the ED course. PROCEDURES: Silver nitrate, and wrapped cut with tight finger/hand wrap MEDICATIONS GIVEN: Silver nitrate Patient tolerated medication well with no adverse reactions. Patient reported improvement in pain. MEDICAL DECISION MAKING: Patient is a 58 yr old female presenting with a cut on her right hand 4th digit x 5 weeks. The cut is about 1 cm and does not appear infection and patient has full sensation, ROM, and strength. However, the cut is bleeding continuously. In the ED, we applied Silver nitrate to the cut which stopped the bleeding. In addition, we applied a hemostatic gauze and wrapped the cut, finger, and hand tightly to prevent any further bleeding. At this time, I do not believe the cut is infected, no signs of septic shock, no signs of anemia, no signs of gangrene. Patient was instructed to come back to the ED in 2 days for a recheck. Patient was instructed to follow up with PCP in the next 1-2 days and to return to the ED if bleeding continues or worsens . Vital signs were reviewed. Patient is afebrile. Patient was not hypoxic. Patient was hemodynamically stable. PRESCRIPTION: none DISCHARGE: At this time, patient is stable for discharge and outpatient management. I have instructed the patient to follow-up with his/her primary care physician in 1-2 days. I have discussed with the patient the possibility of needing to see a specialist for further workup and imaging studies if symptoms persist. I have instructed the patient to promptly return to the ER for any new or worsening symptoms including increased pain, fever, nausea, vomiting, weakness or LOC. The patient and/or family expressed understanding of and agreement with this plan. All questions were answered. Home care instructions were provided. Disclaimer: Inadvertent spelling and grammatical errors are likely due to EHR/dictation software use and do not reflect on the overall quality of patient care. Also, please note that the electronic time recorded on this note does not necessarily reflect the actual time of the patient encounter. Departure Diagnosis: Primary Impression: Bleeding Additional Impression: Cut of finger Condition: Fair Patient Instructions: Self-Care for Cuts, Scrapes, and Flowers Referrals: [facility] YOU HAVE RECEIVED A MEDICAL SCREENING EXAM AND THE RESULTS INDICATE THAT YOU DO NOT HAVE A CONDITION THAT REQUIRES URGENT TREATMENT IN THE EMERGENCY DEPARTMENT. FURTHER EVALUATION AND TREATMENT OF YOUR CONDITION CAN WAIT UNTIL YOU ARE SEEN IN YOUR DOCTORS OFFICE WITHIN THE NEXT 1-2 DAYS. IT IS YOUR RESPONSIBILITY TO MAKE AN APPOINTMENT FOR FOLOW-UP CARE. IF YOU HAVE A PRIMARY DOCTOR --you should call your primary doctor and schedule an appointment IF YOU DO NOT HAVE A PRIMARY DOCTOR YOU CAN CALL OUR PHYSICIAN REFERRAL HOTLINE AT IF YOU CAN NOT AFFORD TO SEE A PHYSICIAN YOU CAN CHOSE FROM THE FOLLOWING [facility] [email or web address] [facility]. [facility] [address] [facility]. [facility] [address] [employer] [facility] [address] [facility] [address] [facility]. [facility] [address] [facility]. [facility] YOU HAVE RECEIVED A MEDICAL SCREENING EXAM AND THE RESULTS INDICATE THAT YOU DO NOT HAVE A CONDITION THAT REQUIRES URGENT TREATMENT IN THE EMERGENCY DEPARTMENT. FURTHER EVALUATION AND TREATMENT OF YOUR CONDITION CAN WAIT UNTIL YOU ARE SEEN IN YOUR DOCTORS OFFICE WITHIN THE NEXT 1-2 DAYS. IT IS YOUR RESPONSIBILITY TO MAKE AN APPOINTMENT FOR FOLOW-UP CARE. IF YOU HAVE A PRIMARY DOCTOR --you should call your primary doctor and schedule and appointment IF YOU DO NOT HAVE A PRIMARY DOCTOR YOU CAN CALL OUR PHYSICIAN REFERRAL HOTLINE AT . IF YOU CAN NOT AFFORD TO SEE A PHYSICIAN YOU CAN CHOSE FROM THE FOLLOWING [facility] INSTITUTIONS: [facility] [address] [place] [address] [facility] [address] [place] [address] [address] Additional Instructions: Return to ED in 2 days for recheck Call your primary care doctor TOMORROW for an appointment during the next 1-2 days.See the doctor sooner or return here if your condition worsens before your appointment time. LORE BAXTER PA-C Nov 24, 2018 10:18
[2018-11-24 10:42] VITALS: BP 142/75; PULSE 66; RESP 18
== END 2018-11-24 10:44 | disposition home or self-care (01) ==
LOC: FTE 08:43
DX: S61.214A Laceration without foreign body of right ring finger without damage to nail, initial encounter (principal); I10 Essential (primary) hypertension; W26.9XXA Contact with unspecified sharp object(s), initial encounter; Y92.9 Unspecified place or not applicable; Z79.82 Long term (current) use of aspirin
CPT/HCPCS: 99282; Z7610

== ENCOUNTER 2018-11-26 08:33 | Emergency (ER) | payer BC ==
[~2018-11-26] VITALS: Ht 167.6 cm; Wt 81.1 kg
[2018-11-26 08:36] VITALS: BP 158/75; PULSE 64; RESP 18; Ht 167.6 cm; Wt 81.1 kg
--- NOTE | 2018-11-26 09:28 | ERD ---
ER Documentation Chief Complaint Chief Complaint wound check HPI 58-year-old female presenting for wound check of her right ring finger. Patient had a bump and she hit it 2 days ago with started bleeding excessively. Bleeding has since resolved. Patient came to for evaluation of the area. She is been wearing a Band-Aid over it. Denies other medical problems. NKDA. Surgical history denies. Social history denies ROS All systems reviewed and are negative except as per history of present illness. Medications Home Meds Reported Medications [omeprazole] No Conflict Check, PO DAILY 10/24/18 Hydrochlorothiazide* (Hydrochlorothiazide*) 25 Mg Tab, 25 MG PO DAILY, #30 TAB 07/11/18 Aspirin* (Aspirin* EC) 81 Mg Tablet.dr, 81 MG PO DAILY, TAB 07/11/18 Allergies Allergies: Coded Allergies: No Known Allergy (Unverified , 11/24/18) PMhx/Soc History of Surgery: Yes (appendectomy) Anesthesia Reaction: No Hx Neurological Disorder: No Hx Respiratory Disorders: No Hx Cardiac Disorders: Yes (htn) Hx Psychiatric Problems: No Hx Miscellaneous Medical Probl: No Hx Alcohol Use: No Hx Substance Use: No Hx Tobacco Use: No FmHx Family History: No diabetes, No coronary disease, No other Physical Exam Vitals Vital Signs Date Temp Pulse Resp B/P (MAP) Pulse Ox O2 O2 Flow FiO2 Time Delivery Rate 11/26/18 98.2 64 18 158/75 99 08:36 (102) Physical Exam GENERAL: The patient is well-appearing, well-nourished, in no acute distress CHEST: Clear to auscultation bilaterally. There are no rales, wheezes or rhonchi. HEART: Regular rate and rhythm. No murmurs, clicks, rubs or gallops. No S3 or S4. EXTREMITIES: Equal pulses bilaterally. There is no peripheral clubbing, cyanosis or edema. No focal swelling or erythema. Full range of motion. SKIN: Scabbed region noted to the right ring finger adjacent to nail bed. Procedures/MDM MDM: 58-year-old female presenting for wound check of the right ring finger. I have low suspicion for retained foreign body. I have low suspicion for infectious process. Patient has healing wound and is told to follow-up with instrument operator as they may want to biopsy the region. Patient is discharged with strict ER precautions. All questions answered at discharge Departure Diagnosis: Primary Impression: Pyogenic granuloma Additional Impression: Encounter for wound re-check Condition: Stable Patient Instructions: Wound Care, Pyogenic Granuloma Referrals: [facility] YOU HAVE RECEIVED A MEDICAL SCREENING EXAM AND THE RESULTS INDICATE THAT YOU DO NOT HAVE A CONDITION THAT REQUIRES URGENT TREATMENT IN THE EMERGENCY DEPARTMENT. FURTHER EVALUATION AND TREATMENT OF YOUR CONDITION CAN WAIT UNTIL YOU ARE SEEN IN YOUR DOCTORS OFFICE WITHIN THE NEXT 1-2 DAYS. IT IS YOUR RESPONSIBILITY TO MAKE AN APPOINTMENT FOR FOLOW-UP CARE. IF YOU HAVE A PRIMARY DOCTOR --you should call your primary doctor and schedule an appointment IF YOU DO NOT HAVE A PRIMARY DOCTOR YOU CAN CALL OUR PHYSICIAN REFERRAL HOTLINE AT IF YOU CAN NOT AFFORD TO SEE A PHYSICIAN YOU CAN CHOSE FROM THE FOLLOWING [facility] [address] [facility] [address] [facility]. [facility] [address] [facility] [address] [facility] [address] [facility]. [facility] [address] Additional Instructions: FOLLOW UP WITH YOUR PRIMARY CARE PHYSICIAN TOMORROW.Return to this facility if you are not improving as expected. BRIDGER MURPHY PA-C Nov 26, 2018 09:28
== END 2018-11-26 09:27 | disposition home or self-care (01) ==
LOC: FTE 08:33
DX: L98.0 Pyogenic granuloma (principal); I10 Essential (primary) hypertension; Z79.82 Long term (current) use of aspirin
CPT/HCPCS: 99281

== ENCOUNTER 2018-12-02 21:07 | Emergency (ER) | payer BC ==
[~2018-12-02] VITALS: Ht 167.6 cm; Wt 82.3 kg
[2018-12-02 21:19] VITALS: Ht 167.6 cm; Wt 82.3 kg
[2018-12-02] MEDS ORDERED: LIDOCAINE 1% (MPF) 5 ML VIAL INFIL ONE (23:30)
[2018-12-03] MEDS ORDERED: CEPH-443 PO (03:00)
[2018-12-03] MEDS ORDERED: ACET-141 PO (03:00)
[2018-12-03] MEDS ORDERED: IBUP800T48 PO (03:00)
[2018-12-03] MEDS ORDERED: ACETAMINOPHEN 500 MG TAB PO STA (03:04)
[2018-12-03] MEDS ORDERED: CEPHALEXIN 500 MG CAP PO ONE (03:30)
[2018-12-03] MEDS ORDERED: IBUPROFEN 600 MG TAB PO ONE (03:30)
[2018-12-03 04:25] VITALS: BP 126/80; PULSE 73; RESP 16
--- NOTE | 2018-12-05 14:10 | ERD ---
ER Documentation Chief Complaint Chief Complaint WOUND TO FINGER ON RIGHT HAND, DERMABONDED 5 WEEKS AGO. BLEEDING HPI History of Present Illness: 58-year-old female who reports a past medical history of hypertension coming in today due to wound to fourth digit of right hand. Patient reports injury to finger approximately 5 weeks ago that was Dermabond did and she has been having intermittent episodes of bleeding. Patient had a recent visit to emergency department and silver nitrate was used to control bleeding. Patient denies any fever, chills, warmth. At home pharmacological/nonpharmacological treatment for symptoms: Denies Denies social concerns; Denies recent foreign travel ROS All systems reviewed and are negative except as per history of present illness. Medications Home Meds Active Scripts Acetaminophen* (Acetaminophen*) 500 MG Extra Strength Tablet, 1000 MG PO Q6H PRN for PAIN AND OR ELEVATED TEMP, #30 TAB Prov:FORD FRASER NP 12/03/18 Cephalexin* (Keflex*) 500 Mg Capsule, 500 MG PO QID for FINGER INFECTION for 7 Days, CAP Prov:FORD FRASER NP 12/03/18 Ibuprofen* (Motrin*) 800 Mg Tab, 800 MG PO Q6H PRN for PAIN AND/OR INFLAMMATION, #30 TAB Prov:FORD FRASER NP 12/03/18 Reported Medications [omeprazole] No Conflict Check, PO DAILY 10/24/18 Hydrochlorothiazide* (Hydrochlorothiazide*) 25 Mg Tab, 25 MG PO DAILY, #30 TAB 07/11/18 Aspirin* (Aspirin* EC) 81 Mg Tablet.dr, 81 MG PO DAILY, TAB 07/11/18 Allergies Allergies: Coded Allergies: No Known Allergy (Unverified , 11/24/18) PMhx/Soc History of Surgery: Yes (appendectomy) Anesthesia Reaction: No Hx Neurological Disorder: No Hx Respiratory Disorders: No Hx Cardiac Disorders: Yes (htn) Hx Psychiatric Problems: No Hx Miscellaneous Medical Probl: No Hx Alcohol Use: No Hx Substance Use: No Hx Tobacco Use: No Smoking Status: Never smoker FmHx Family History: No diabetes, No coronary disease Physical Exam Vitals Vital Signs Date Temp Pulse Resp B/P (MAP) Pulse Ox O2 O2 Flow FiO2 Time Delivery Rate 12/03/18 98.6 73 16 126/80 99 Room Air 04:25 (95) 12/02/18 98.6 79 16 146/79 98 21:19 (101) Physical Exam Const: No acute distress, afebrile Head: Atraumatic Eyes: Normal Conjunctiva ENT: Normal External Ears, Nose and Mouth. Neck: Full range of motion. No meningismus. Resp: Clear to auscultation bilaterally Cardio: Regular rate and rhythm, no murmurs Abd: Soft, non tender, non distended. No guarding, no masses, no rigidity Skin: No petechiae or rashes; RUE: Fourth digit with tenderness to palpation, no warmth or erythema, mild ecchymosis, raised lesion noted Back: No midline or flank tenderness Ext: No cyanosis, or edema Neur: Awake and alert x3, speaking in clear sentences, no focal deficits or facial asymmetry Psych: Normal Mood and Affect Results 24 hrs Current Medications Medications Dose Sig/Vinh Start Time Status Last (Trade) Ordered Route PRN Stop Time Admin Dose Reason Admin Lidocaine 5 ml ONCE ONCE 12/02/18 DC (Xylocaine INFIL 23:30 1% (Mpf)) 12/02/18 23:31 Cephalexin 500 mg ONCE ONCE 12/03/18 DC 12/03/18 (Keflex) PO 03:30 12/03/18 03:37 03:31 Ibuprofen 600 mg ONCE ONCE 12/03/18 DC 12/03/18 (Motrin) PO 03:30 12/03/18 03:37 03:31 1,000 mg ONCE STAT 12/03/18 DC 12/03/18 Acetaminophen PO 03:04 12/03/18 03:36 (Tylenol 03:05 Tab) Procedures/MDM ED COURSE: ED course includes a thorough examination and history. The patient was stable throughout ED course. I kept the patient and/or family informed of laboratory and diagnostic imaging results throughout the ED course. LABS: None MEDICATIONS GIVEN IN ER: Acetaminophen, ibuprofen, prophylactic cellulitic treatment with Keflex Patient tolerated medication well with no adverse reactions. Patient reported improvement in pain. DIAGNOSTIC IMAGING: Read by radiologist. IMPRESSION: Soft tissue swelling and deformity along the dorsal lateral margin of the distal fourth digit, perhaps on a post traumatic basis, including alongside the nailbed where there may be a small foreign body/debris present. No underlying acute fracture or evidence of dislocation. Osteopenia. Mild degenerative changes. RPTAT: HSAF Physician Kristen Date Time Electronically viewed and signed by Physician Kristen on 12/03/2018 03:00 . PROCEDURES: Digital block to finger at 0000: Finger cleaned with chlorhexidine scrub. No complications noted. Bleeding controlled. MEDICAL DECISION MAKING: Low suspicion for life-threatening medical emergency. Otherwise healthy patient presenting with constellation of symptoms likely representing uncomplicated injury of finger/granuloma as characterized by history, physical exam findings, imaging findings. Patient reassessment @ 0305: Results discussed. Patient hemodynamically stable. No respiratory distress, otherwise relatively well appearing and nontoxic. Disposition given. Patient educated on diagnoses, prescriptions, follow-up care, return precautions. Strict return precautions given for worsening condition; questions answered discharge. Patient verbalizes understanding of discharge instructions. PRESCRIPTIONS FOR HOME: Keflex, ibuprofen, acetaminophen DISPOSITION: DISCHARGE At this time, patient is stable for discharge and outpatient management. I have instructed the patient to follow-up with his/her primary care physician in 1-2 days. I have discussed with the patient the possibility of needing to see a specialist for further workup and imaging studies if symptoms persist. I have instructed the patient to promptly return to the ER for any new or worsening symptoms including increased pain, fever, nausea, vomiting, weakness or LOC. The patient and/or family expressed understanding of and agreement with this plan. All questions were answered. Home care instructions were provided. DISCLAIMER: Inadvertent spelling and grammatical errors are likely due to EHR/dictation software use and do not reflect on the overall quality of patient care. Also, please note that the electronic time recorded on this note does not necessarily reflect the actual time of the patient encounter. Departure Diagnosis: Primary Impression: Injury of finger Additional Impression: Cellulitis of finger Condition: Stable Patient Instructions: Cellulitis [facility] Usted se omalley hecho un examen mdico de control que le indica que no est en berta condicin que requiera tratamiento urgente en el Departamento de Emergencia. Un estudio ms profundo y el tratamiento de becerra condicin pueden esperar sin ningn riesgo hasta que usted sea atendida/o en el consultorio de becerra mdico o berta clnica. Es responsabilidad suya arreglar berta earnest para el seguimiento del brett. MANEJO DE CONDICIONES NO URGENTES EN EL FUTURO 1) Si usted tiene un mdico de atencin primaria: Usted debera llamar a becerra mdico de atencin primaria antes de venir al departamento de emergencia. Despus de las horas de consultorio, becerra doctor o becerra asociado/a est disponible por telfono. El mdico o enfermero de daniela en el servicio telefnico puede asesorarle por risa medio para atender el problema, o brett contrario se puede programar berta earnest. 2) Si usted no tiene un mdico de atencin primaria: Llame al mdico o clnica de referencia que aparece abajo petey las horas de consultorio para hacer berta earnest para que le vean. CLINICAS: [facility] [phone] [address] [facility] [phone] [address] [facility]. [facility] [phone] [facility]. [facility] [phone] [address] [facility]. [place] [id number] [phone] [facility]. [phone] [address] [facility]. [facility] () Usted se omalley hecho un examen mdico de control que le indica que no est en berta condicin que requiera tratamiento urgente en el Departamento de Emergencia. Un estudio ms profundo y el tratamiento de becerra condicin pueden esperar sin ningn riesgo hasta que usted sea atendida/o en el consultorio de becerra mdico o berta clnica. Es responsabilidad suya arreglar berta earnest para el seguimiento del brett. MANEJO DE CONDICIONES NO URGENTES EN EL FUTURO 1) Si usted tiene un mdico de atencin primaria: Usted debera llamar a becerra mdico de atencin primaria antes de venir al departamento de emergencia. Despus de las horas de consultorio, becerra doctor o becerra asociado/a est disponible por telfono. El mdico o enfermero de daniela en el servicio telefnico puede asesorarle por risa medio para atender el problema, o brett contrario se puede programar berta earnest. 2) Si usted no tiene un mdico de atencin primaria: Llame al mdico o condado institucions de referencia que aparece abajo petey las horas de consultorio para hacer berta earnest para que le vean. SI USTED NO PUEDE PAGAR PARA JEAN PAUL UN MEDICO puede ir a: [facility] [address] [place] [address] [facility] [address] [place] [address] [facility] [address] [place] [address] [facility] [address] [place], [place] [id number] Additional Instructions: Google Translate utilizado para la traduccin de las siguientes lneas, por favor, disculpe los errores. Muchas [place] por permitirnos participar en becerra cuidado. Becerra maris y seguridad es nuestra principal prioridad en [facility]. Es importante leer todas las instrucciones de carmenza y la educacin que se proporcionan en becerra paquete de carmenza. Llame a becerra mdico de atencin primaria MAANA para berta earnest petey los prximos 2 a 4 nathan y lleve toda la informacin y los medicamentos recetados. - La cefalexina es un antibitico; tome pete medicamento todos los nathan gisele se indica en becerra receta. Debe completar todo el curso de tratamiento que figura en becerra receta. [place] es muy importante porque se necesitan varios nathan para eliminar las bacterias que causan la infeccin. --Ibuprofeno es un medicamento que ayuda con el dolor / inflamacin. En la dosis de 600 a 800 mg, esto ayudar con la inflamacin / hinchazn. [place] pete medicamento segn las indicaciones. --Acetaminofeno gisele medicamento para el dolor y / o fiebre. [place] pete medicame nto segn sea necesario para el dolor leve a moderado. Pete medicamento no causar somnolencia. Llene las recetas y siga exactamente las instrucciones de la etiqueta. Si los sntomas empeoran y becerra proveedor no est disponible, regrese inmediatamente al Departamento de Emergencias. ----- Google Translate used for translation of following lines, please excuse errors. Thank you very much for allowing us to participate in your care. Your health and safety is our top priority at [facility]. It is important to read all discharge instructions and education provided in your discharge packet. Call your primary care doctor TOMORROW for an appointment during the next 2-4 days and bring all the information and medications prescribed. Have prescriptions filled and follow precisely the directions on the label. --Cephalexin is an antibiotic; take this medication every day as listed on your prescription. You must complete the entire course of treatment that is listed on your prescription this is very important because it takes a certain number of days to kill the bacteria that is causing the infection. --Ibuprofen is a medication that will help with pain/inflammation. At the dosage of 600 to 800 mg, this will help with inflammation/swelling. Take this medication as prescribed. --Acetaminophen as a medication for pain and/or fever. Take this medication as needed for mild to moderate pain. This medication will not cause drowsiness. If the symptoms get worse and your provider is unavailable, return to the Emergency Department immediately. FORD FRASER NP Dec 05, 2018 14:09
== END 2018-12-03 04:25 | disposition home or self-care (01) ==
LOC: FTE 21:07
DX: S69.91XA Unspecified injury of right wrist, hand and finger(s), initial encounter (principal); I10 Essential (primary) hypertension; L03.011 Cellulitis of right finger; X58.XXXA Exposure to other specified factors, initial encounter; Y92.9 Unspecified place or not applicable; Z79.82 Long term (current) use of aspirin
CPT/HCPCS: 64450; 73140; 99283; Z7610

== ENCOUNTER 2018-12-05 09:36 | Emergency (ER) | payer BC ==
[~2018-12-05] VITALS: Wt 79.1 kg
[~2018-12-05 09:36] MED LIST changes: +ACET-141 PO; +CEPH-443 PO; +IBUP800T48 PO
[2018-12-05 10:16] VITALS: BP 148/93; PULSE 69; RESP 20
--- NOTE | 2018-12-05 10:41 | ERD ---
ER Documentation Chief Complaint Chief Complaint l. finger lac w active bleeding, seen here x2 for same, bleeding controlled HPI This is a Luxembourgish-speaking 58-year-old female who presents to the ED complaining of a bleeding wound to her left lateral ring finger that occurred just prior to arrival. Patient has been seen here 4 times in the past 3 weeks for the same complaint. She is currently taking Keflex for prophylactic cellulitis. Patient denies any trauma or injury. Denies any fevers or chills. Denies any difficulty with range of motion of her finger. No other concerns. ROS All systems reviewed and are negative except as per history of present illness. Medications Home Meds Active Scripts Acetaminophen* (Acetaminophen*) 500 MG Extra Strength Tablet, 1000 MG PO Q6H PRN for PAIN AND OR ELEVATED TEMP, #30 TAB Prov:FORD FRASER NP 12/03/18 Cephalexin* (Keflex*) 500 Mg Capsule, 500 MG PO QID for FINGER INFECTION for 7 Days, CAP Prov:FORD FRASER NP 12/03/18 Ibuprofen* (Motrin*) 800 Mg Tab, 800 MG PO Q6H PRN for PAIN AND/OR INFLAMMATION, #30 TAB Prov:FORD FRASER NP 12/03/18 Reported Medications [omeprazole] No Conflict Check, PO DAILY 10/24/18 Hydrochlorothiazide* (Hydrochlorothiazide*) 25 Mg Tab, 25 MG PO DAILY, #30 TAB 07/11/18 Aspirin* (Aspirin* EC) 81 Mg Tablet.dr, 81 MG PO DAILY, TAB 07/11/18 Allergies Allergies: Coded Allergies: No Known Allergy (Unverified , 11/24/18) PMhx/Soc History of Surgery: Yes (appendectomy) Anesthesia Reaction: No Hx Neurological Disorder: No Hx Respiratory Disorders: No Hx Cardiac Disorders: Yes (htn) Hx Psychiatric Problems: No Hx Miscellaneous Medical Probl: No Hx Alcohol Use: No Hx Substance Use: No Hx Tobacco Use: No Smoking Status: Never smoker Physical Exam Vitals Vital Signs Date Temp Pulse Resp B/P (MAP) Pulse Ox O2 O2 Flow FiO2 Time Delivery Rate 12/05/18 98.0 69 20 148/93 98 10:16 (111) Physical Exam Const: No acute distress Head: Atraumatic Eyes: Normal Conjunctiva ENT: Normal External Ears, Nose and Mouth. Skin: + Small scab-like growth to the lateral aspect of her left fourth finger, mild active bleeding. Ext: Full range of motion of the left fourth finger, FDP intact. Sensation grossly intact. Neur: Awake and alert Psych: Normal Mood and Affect Procedures/MDM MEDICAL DECISION MAKIN-year-old female presents for the fourth time over the past 3 weeks for same complaints of bleeding to the wound on her left fourth finger. Patient has what appears to be a granuloma on physical exam. Contrary to triage nurse, patient does not have any evidence of a laceration. There is no evidence of retained FB, neurovascular injury, or infection. Wound was irrigated and bleeding was controlled with dry pressure dressing. No further work-up is needed at this time. Patient was advised to follow-up with a salesperson parts. Strict return p recautions were discussed. PRESCRIPTIONS: None, patient has Bactrim at home. SPECIALIST FOLLOW UP RECOMMENDED: [employer] Patient has been advised to follow up with primary care in 1-2 days. Departure Diagnosis: Primary Impression: Pyogenic granuloma Condition: Stable Patient Instructions: Pyogenic Granuloma Referrals: [facility] YOU HAVE RECEIVED A MEDICAL SCREENING EXAM AND THE RESULTS INDICATE THAT YOU DO NOT HAVE A CONDITION THAT REQUIRES URGENT TREATMENT IN THE EMERGENCY DEPARTMENT. FURTHER EVALUATION AND TREATMENT OF YOUR CONDITION CAN WAIT UNTIL YOU ARE SEEN IN YOUR DOCTORS OFFICE WITHIN THE NEXT 1-2 DAYS. IT IS YOUR RESPONSIBILITY TO MAKE AN APPOINTMENT FOR FOLOW-UP CARE. IF YOU HAVE A PRIMARY DOCTOR --you should call your primary doctor and schedule an appointment IF YOU DO NOT HAVE A PRIMARY DOCTOR YOU CAN CALL OUR PHYSICIAN REFERRAL HOTLINE AT IF YOU CAN NOT AFFORD TO SEE A PHYSICIAN YOU CAN CHOSE FROM THE FOLLOWING [facility] [address] [facility] [address] [facility] [facility] [address] [facility] [address] [facility] [address] [facility]. [facility]. [address] [facility]. [facility] YOU HAVE RECEIVED A MEDICAL SCREENING EXAM AND THE RESULTS INDICATE THAT YOU DO NOT HAVE A CONDITION THAT REQUIRES URGENT TREATMENT IN THE EMERGENCY DEPARTMENT. FURTHER EVALUATION AND TREATMENT OF YOUR CONDITION CAN WAIT UNTIL YOU ARE SEEN IN YOUR DOCTORS OFFICE WITHIN THE NEXT 1-2 DAYS. IT IS YOUR RESPONSIBILITY TO MAKE AN APPOINTMENT FOR FOLOW-UP CARE. IF YOU HAVE A PRIMARY DOCTOR --you should call your primary doctor and schedule and appointment IF YOU DO NOT HAVE A PRIMARY DOCTOR YOU CAN CALL OUR PHYSICIAN REFERRAL HOTLINE AT . IF YOU CAN NOT AFFORD TO SEE A PHYSICIAN YOU CAN CHOSE FROM THE FOLLOWING [facility] INSTITUTIONS: [facility] [address] [place] [address] [facility] [address] [place] [address] [facility] [address] [place] [address] Additional Instructions: You must follow-up with a salesperson parts for a biopsy of this. Keep your finger in the dry dressing for at least 24 hours. Do not soak your finger in anything. Finish the course of antibiotics. And stay off of the aspirin. Paciente aconseja volver a Departamento de urgencias inmediatamente para sntomas nuevos o que empeoran . Paciente aconseja posteriores con el PCP en 1-2 nathan. Si el paciente no tiene ninguna de atencin primaria pueden seguir con [facility] [address] [place] [address] o [facility] [address] [place] [id number] LEESA DON PA-C Dec 05, 2018 10:41
== END 2018-12-05 11:57 | disposition home or self-care (01) ==
LOC: FTE 09:36
DX: L98.0 Pyogenic granuloma (principal); I10 Essential (primary) hypertension; Z79.82 Long term (current) use of aspirin
CPT/HCPCS: 99282